=== PATIENT | male | born 1950 | race Hispanic/Latino ===

== ENCOUNTER → 2021-08-30 | Outpatient (CLI) | payer MEDICARE | LOC: RAD 14:10 | PROVIDERS: ATTEND Internal Medicine | DX: G57.92 Unspecified mononeuropathy of left lower limb (principal) | CPT/HCPCS: 72110 ==

== ENCOUNTER 2023-10-30 10:46 | Outpatient (RCR) | payer MEDICARE ==
[~2023-10-30 10:46] MED LIST: BUPIVACAINE 0.25% 30ML SDV ONE
== END 2023-11-27 ==
LOC: ST 10:46
PROVIDERS: ATTEND Internal Medicine Pulmonary Disease
DX: R13.10 Dysphagia, unspecified (principal)

== ENCOUNTER → 2023-12-10 | Outpatient (REF) | payer MEDICARE | LOC: RAD 12:18 | PROVIDERS: ATTEND Internal Medicine Pulmonary Disease | DX: J69.0 Pneumonitis due to inhalation of food and vomit (principal) | CPT/HCPCS: 71046 ==

== ENCOUNTER → 2024-04-13 | Outpatient (REF) | payer MEDICARE | LOC: CT 13:39 | PROVIDERS: ATTEND Internal Medicine Pulmonary Disease | DX: A31.0 Pulmonary mycobacterial infection (principal) | CPT/HCPCS: 71250 ==